=== PATIENT | male | born 1985 | race Caucasian/White ===

== ENCOUNTER → 2020-04-06 | Outpatient (CLI) | payer OTHER ==
--- NOTE | 2020-04-09 07:16 | SLEEPCENT ---
DATE: 04/06/2020 ORDERED BY: Christy Renee Nocturnal polysomnography was performed for evaluation of sleep physiology. Eight hours and 5 minutes of data were reviewed. There were 429.5 minutes of sleep identified. Sleep latency was short at 5 minutes. REM latency was somewhat delayed at 151.5 minutes. Sleep architecture improved after interventions were made, and there were three REM cycles noted. Overall sleep efficiency was 89.6%. The electrocardiogram showed a sinus rhythm with an average heart rate of 60 beats per minute. EEG showed normal waveforms for wake and sleep. There were 170 respiratory events identified of 10 seconds in duration or greater for an apnea- hypopnea index of 23.7. Having clearly established the presence of obstructive sleep apnea syndrome early in the course of the test, the study was stopped shortly before 1:00 a.m. for the application of pressure therapy. The patient was then fit with a [employer] Airfit F20 full face mask of large size, 4 cm of water were applied to the circuit and the lights were again extinguished. For the remaining hours of testing, pressure titration was performed to an optimal pressure of +11 with which the patient slept through REM without respiratory events or oxygen desaturation. IMPRESSION: Obstructive sleep apnea syndrome (G47.33). Apnea-hypopnea index 23.7. RECOMMENDATION: Nightly use of pressure therapy 11 cm of water. MTDD
== END ==
LOC: M SLEEP 20:00
PROVIDERS: ATTEND Physician Assistant Medical
DX: G47.33 Obstructive sleep apnea (adult) (pediatric) (principal)

== ENCOUNTER → 2022-05-20 | Outpatient (REF) | LOC: M PLAIMG 14:39 | PROVIDERS: ATTEND Internal Medicine | DX: L40.52 Psoriatic arthritis mutilans (principal) ==